=== PATIENT | female | born 1975 | race Caucasian/White ===

== ENCOUNTER 2017-07-14 18:02 | Emergency (ER) | payer BC ==
[2017-07-14] MEDS ORDERED: MAGNE/ALUM HYDROXD 30 ML UCUP ONE (19:06)
[2017-07-14] MEDS ORDERED: LIDOCAINE VISCOUS 2% SOLN 15 ML UDC ONE (19:06)
[2017-07-14] MEDS ORDERED: ONDANSETRON 4 MG/2 ML VIAL ONE (19:06)
[2017-07-14] MEDS ORDERED: FAMOTIDINE 20 MG/2 ML VIAL IV ONE (19:07)
[2017-07-14 19:42] LABS: Urine Blood TRACE (NEG); Urine Glucose NEGATIVE (NEG); Urine Protein NEGATIVE (NEG); Urine Specific Gravity 1.015 (1.005-1.030)
[2017-07-14 19:47] LABS: Absolute Lymphocytes (CBC) 3.4 K/uL (0.7-4.9); Absolute Monocytes 0.7 K/uL (0.1-1.3); Absolute Neutrophil 9.8 K/uL (1.8-8.0); Basophils % 1.1 % (0-1.3); Eosinophils % 3.4 % (0-4.4); Lymphocytes % 23.3 % (15.3-44.8); MCH 31.6 pg (27.0-35.0); MCV 94.6 fL (80-100); MPV 9.6 fL (7.6-11.3); Monocytes % 4.7 % (3.3-12.3); RBC Red Blood Cell Count 4.65 M/uL (3.86-4.86)
[2017-07-14 19:56] LABS: Bicarbonate 27 mEq/L (21-31); Glucose Level 93 mg/dL (65-120); Lipase 20 U/L (22-51); Potassium 4.3 mEq/L (3.6-5.0); Sodium Level 136 mEq/L (135-145)
[2017-07-14 20:02] LABS: ALT/SGPT 20 IU/L (10-60); AST/SGOT 17 IU/L (10-42); Albumin 4.1 g/dL (3.2-5.5); Alkaline Phosphatase 63 IU/L (42-121); Amylase Level 53 U/L (28-100); BUN Blood Urea Nitrogen 14 mg/dL (6-20); Bilirubin Direct < 0.1 mg/dL (0-0.2); Bilirubin Total 0.3 mg/dL (0.3-1.2); Protein, Total 7.7 g/dL (6.0-8.3)
[2017-07-14 20:47] LABS: Urine Bacteria <20 /HPF (<20); Urine Culture Reflex Order NOT NEEDED; Urine RBC <5 /HPF (NONE SEEN)
--- NOTE | 2017-07-14 21:43 | RAD REPORT ---
EXAM DESCRIPTION: CT - Abdomen Pelvis W Contrast - 07/14/2017 9:27 pm CLINICAL HISTORY: Abdominal pain. Left upper quadrant pain x3 days COMPARISON: None. TECHNIQUE: Computed axial tomography of the abdomen and pelvis was obtained. 100 cc Isovue-300 is ad ministered intravenously. Oral contrast was given. All CT scans are performed using dose optimization technique as appropriate and may include automated exposure control or mA/KV adjustment according to patient size. FINDINGS: The liver, spleen, pancreas, adrenals and kidneys appear unremarkable. The appendix is normal caliber. There is no evidence of diverticulitis The gallbladder is mildly distended Several prominent right ovarian follicles are seen. A 2 centimeter right ovarian cyst is present with out significant free-fluid IMPRESSION: Mildly distended gallbladder. Ultrasound may be helpful for further evaluation
--- NOTE | 2017-07-14 21:44 | RAD REPORT ---
EXAM DESCRIPTION: Rohan Single View07/14/2017 7:35 pm CLINICAL HISTORY: Abdominal pain COMPARISON: none FINDINGS: The lungs appear clear of acute infiltrate. The heart is normal size IMPRESSION: No acute abnormalities displayed
--- NOTE | 2017-07-14 22:32 | RAD REPORT ---
EXAM DESCRIPTION: US - Abdomen Exam Limited - 07/14/2017 10:20 pm CLINICAL HISTORY: Abdominal pain. COMPARISON: Cat scan July 14, 2017 FINDINGS: Multiple gallstones are present. The gallbladder wall is not thickened. The biliary tree is normal caliber. IMPRESSION: Cholelithiasis without evidence cholecystitis
[2017-07-14] MEDS ORDERED: CIPROFLOXACIN HCL 500 MG TAB ONE (22:48)
--- NOTE | 2017-07-14 22:50 | ER ---
Nurse's Notes [facility] Name: Di Ghotra Age: 42 yrs Sex: Female : 1975 Arrival Date: 07/14/2017 Time: 18:05 Bed 8 Private MD: Diagnosis: Cholelithiasis Presentation: 07/14 18:14 Presenting complaint: Patient states: Reports burning pain in epigastrium and diaphragm aj area that radiates to LUQ for 3 days. Transition of care: patient was not received from another setting of care. Onset of symptoms was July 11, 2017. Initial Sepsis Screen: Does the patient meet any 2 criteria? No. Patient's initial sepsis screen is negative. Does the patient have a suspected source of infection? No. Patient's initial sepsis screen is negative. Care prior to arrival: None. 18:14 Method Of Arrival: Ambulatory 18:14 Acuity: CHARBEL 3 aj Triage Assessment: 18:16 General: Appears in no apparent distress. uncomfortable, Behavior is calm, cooperative, aj appropriate for age. Pain: Complains of pain in epigastric area and left upper quadrant Pain currently is 8 out of 10 on a pain scale. Neuro: Level of Consciousness is awake, alert, obeys commands, Oriented to person, place, time, situation, Appropriate for age. Respiratory: Airway is patent Respiratory effort is even, unlabored, Respiratory pattern is regular, symmetrical. GI: Reports upper abdominal pain, epigastric pain. Derm: Skin is intact, is healthy with good turgor, Skin is pink, warm \T\ dry. normal. 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 - Social history:: Smoking status: Patient uses tobacco products, smokes one pack cigarettes per day. Screenin:20 Abuse screen: Denies threats or abuse. Denies injuries from another. Nutritional sg screening: No deficits noted. Tuberculosis screening: No symptoms or risk factors identified. Never had TB. Fall Risk None identified. Assessment: 18:20 Reassessment: Patient appears in no apparent distress at this time. Patient and/or sg family updated on plan of care and expected duration. Pain level reassessed. Patient is alert, oriented x 3, equal unlabored respirations, skin warm/dry/pink. General: Appears in no apparent distress. comfortable, well groomed, well developed, well nourished, Behavior is calm, cooperative, appropriate for age, quiet. 20:07 Reassessment: Patient appears in no apparent distress at this time. Patient and/or ak1 family updated on plan of care and expected duration. Pain level reassessed. Patient is alert, oriented x 3, equal unlabored respirations, skin warm/dry/pink. pt informed of procedure for CT with oral contrast. family/friend at bedside. will continue to monitor. 20:07 GI: Bowel sounds present X 4 quads. Abd is soft X 4 quads. ak1 Vital Signs: 18:16 BP 127 / 91; Pulse 83; Resp 19; Temp 98.0; Pulse Ox 97% on R/A; Weight 99.79 kg; Height aj 5 ft. 6 in. (167.64 cm); Pain 8/10; 21:47 BP 118 / 83; Pulse 63; Resp 18; Pulse Ox 97% on R/A; Pain 6/10; ak1 18:16 Body Mass Index 35.51 (99.79 kg, 167.64 cm) ED Course: 18:05 Patient arrived in ED. as 18:15 Triage completed. aj 18:16 Arm band placed on left wrist. Patient placed in an exam room, on a stretcher. aj 18:35 Jalen Garnica PA is PHCP. cp 18:35 Jim Peace MD is Attending Physician. cp 19:15 Inserted saline lock: 20 gauge in right antecubital area, using aseptic technique. cc Blood collected. 19:19 Juliana Vera, RN is Primary Nurse. ak1 19:20 Initial lab(s) drawn, by me, sent to lab. cc 19:27 Patient has correct armband on for positive identification. Placed in gown. Bed in low ak1 position. Call light in reach. Side rails up X 1. Adult w/ patient. personnel monitor on. Pulse ox on. NIBP on. CT notified pt finished oral contrast. 19:32 X-ray completed. Portable x-ray completed in exam room. Patient tolerated procedure bb2 well. 19:34 XRAY Chest (1 view) In Process Unspecified. EDMS 19:40 EKG done, by ED staff, reviewed by Jalen UNDERWOOD. cc 19:43 Urine --Ancillary (enter results) Sent. cc 19:43 Urine Dipstick--Ancillary (enter results) Sent. cc 21:27 CT Abd/Pelvis - W/Contrast In Process Unspecified. EDMS 22:20 US Abdomen Limited In Process Unspecified. EDMS 22:23 Patient moved back from ultrasound. valentino 22:49 Brenden Douglas MD is Referral Physician. cp 23:04 No provider procedures requiring assistance completed. IV discontinued, intact, ak1 bleeding controlled, No redness/swelling at site. Pressure dressing applied. Administered Medications: 19:19 Drug: Pepcid 20 mg Route: IVP; Site: right antecubital; ak1 22:19 Follow up: Response: No adverse reaction ak1 19:19 Drug: GI Cocktail without - (Maalox Suspension 30 ml, Lidocaine Liquid 2 % 15 ak1 ml) Route: PO; 22:19 Follow up: Response: No adverse reaction ak1 19:20 Drug: Zofran 4 mg Route: IVP; Site: right antecubital; ak1 22:19 Follow up: Response: No adverse reaction ak1 22:55 Drug: Ciprofloxacin 500 mg Route: PO; ak1 22:56 Follow up: Response: No adverse reaction ak1 Outcome: 22:50 Discharge ordered by MD. cp 23:04 Discharged to home ambulatory, with family. ak1 23:04 Condition: good 23:04 Discharge instructions given to patient, Instructed on discharge instructions, follow up and referral plans. no drinking with medication, no driving heavy equipment, medication usage, safe sex practices, Demonstrated understanding of instructions, follow-up care, medications, Prescriptions given X 4. 23:06 Patient left the ED. ak1 Signatures: Dispatcher [employer] EDMS Asa Berry RN RN sg Myers, Amanda, RN RN aj Martinez, Amelia as Christian, Chelsea cc Krenek, Amber RN RN ak1 Jalen Garnica PA PA cp Dupre, Jacques jd Bock, Brittany bb2
--- NOTE | 2017-07-14 22:50 | EDPHYS ---
Physician Documentation [facility] Name: Di Ghotra Age: 42 yrs Sex: Female : 1975 Arrival Date: 07/14/2017 Time: 18:05 Bed 8 Private MD: ED Physician Jim Peace HPI: 07/14 19:05 This 42 yrs old Female presents to ER via Ambulatory with complaints of cp Abdominal Pain, Chest Wall Pain. 19:05 The patient presents with abdominal pain in the epigastric area. cp 19:05 Onset: The symptoms/episode began/occurred 3 day(s) ago. cp 19:05 The symptoms radiate to chest. Associated signs and symptoms: Pertinent positives: cp nausea, Pertinent negatives: constipation, diarrhea, dysuria, fever, vomiting. 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 - Social history:: Smoking status: Patient uses tobacco products, smokes one pack cigarettes per day. ROS: 19:15 Constitutional: Negative for body aches, chills, fever, poor PO intake. cp 19:15 Eyes: Negative for injury, pain, redness, and discharge. cp Exam: 19:20 Constitutional: The patient appears in no acute distress, alert, awake, cp non-diaphoretic, non-toxic, well developed, well nourished, overweight 19:20 Head/Face: Normocephalic, atraumatic. cp 19:20 Eyes: Pupils equal round and reactive to light, extra-ocular motions intact. Lids and lashes normal. Conjunctiva and sclera are non-icteric and not injected. Cornea within normal limits. Periorbital areas with no swelling, redness, or edema. ENT: Nares patent. No nasal discharge, no septal abnormalities noted. Tympanic membranes are normal and external auditory canals are clear. Oropharynx with no redness, swelling, or masses, exudates, or evidence of obstruction, uvula midline. Mucous membranes moist. Neck: Trachea midline, no thyromegaly or masses palpated, and no cervical lymphadenopathy. Supple, full range of motion without nuchal rigidity, or vertebral point tenderness. No Meningismus. Chest/axilla: Normal chest wall appearance and motion. Nontender with no deformity. No lesions are appreciated. Cardiovascular: Regular rate and rhythm with a normal S1 and S2. No gallops, murmurs, or rubs. Normal PMI, no JVD. No pulse deficits. Respiratory: Lungs have equal breath sounds bilaterally, clear to auscultation and percussion. No rales, rhonchi or wheezes noted. No increased work of breathing, no retractions or nasal flaring. 19:20 Abdomen/GI: Inspection: abdomen appears normal, Bowel sounds: active, all quadrants, Palpation: soft, in all quadrants, moderate abdominal tenderness, in the epigastric area, rebound tenderness, is not appreciated, voluntary guarding, is elicited in the epigastric area, involuntary guarding, is not appreciated. 19:20 Back: CVA tenderness, is absent. 19:20 Skin: cellulitis, is not appreciated, no rash present. 19:20 Neuro: Orientation: to person, place \T\ time. Mentation: lucid, able to follow commands, Motor: moves all fours, strength is normal, Sensation: no obvious gross deficits. 19:40 ECG was reviewed by the Attending Physician. Vital Signs: 18:16 BP 127 / 91; Pulse 83; Resp 19; Temp 98.0; Pulse Ox 97% on R/A; Weight 99.79 kg; Height aj 5 ft. 6 in. (167.64 cm); Pain 8/10; 21:47 BP 118 / 83; Pulse 63; Resp 18; Pulse Ox 97% on R/A; Pain 6/10; ak1 18:16 Body Mass Index 35.51 (99.79 kg, 167.64 cm) aj MDM: 18:35 Patient medically screened. cp 20:00 Differential diagnosis: cholecystitis, Cholelithiasis, gastritis, gastroesophageal cp reflux disease, pancreatitis, Perf. Duodenal Ulcer, Perf. Gastric Ulcer, Peritonitis, Pyelonephritis, Ureterolithiasis, urinary tract infection. 22:50 Data reviewed: vital signs, nurses notes, lab test result(s), EKG, radiologic studies, cp CT scan, plain films, ultrasound. 22:50 Test interpretation: by ED physician or midlevel provider: ECG, plain radiologic cp studies. Counseling: I had a detailed discussion with the patient and/or guardian regarding: the historical points, exam findings, and any diagnostic results supporting the discharge/admit diagnosis, lab results, radiology results, the need for outpatient follow up, a general surgeon, to return to the emergency department if symptoms worsen or persist or if there are any questions or concerns that arise at home. Response to treatment: the patient's symptoms have markedly improved after treatment, and as a result, I will discharge patient. 07/14 19:00 Order name: Amylase, Serum; Complete Time: 20:20 07/14 19:00 Order name: Basic Metabolic Panel; Complete Time: 20:20 07/14 20:20 Interpretation: Normal except: GFR 86. 07/14 19:00 Order name: CBC with Diff; Complete Time: 20:20 07/14 20:20 Interpretation: Normal except: WBC 14.5; NEUT A 9.8. 07/14 19:00 Order name: Creatinine for Radiology; Complete Time: 20:20 07/14 19:00 Order name: Hepatic Function; Complete Time: 20:20 07/14 20:21 Interpretation: Normal except: GLOB 3.6. 07/14 19:00 Order name: Lipase; Complete Time: 20:20 07/14 20:21 Interpretation: LIP 20; Reviewed. 07/14 19:00 Order name: Urine Microscopic Only; Complete Time: 21:01 cp 07/14 21:01 Interpretation: Normal except: SQEPI 5-10. 07/14 19:00 Order name: Troponin I; Complete Time: 20:20 07/14 19:00 Order name: Magnesium; Complete Time: 20:20 07/14 19:00 Order name: XRAY Chest (1 view); Complete Time: 21:48 07/14 19:34 Order name: Urine Dipstick--Ancillary (enter results) em1 07/14 19:34 Order name: Urine --Ancillary (enter results) em1 07/14 19:35 Order name: Urine Dipstick-Ancillary; Complete Time: 20:20 [facility] 07/14 19:35 Order name: Urine --Ancillary; Complete Time: 20:20 [facility] 07/14 19:00 Order name: Urine Test (obtain specimen); Complete Time: 19:30 07/14 19:00 Order name: IV Saline Lock; Complete Time: 19:20 cp 07/14 19:00 Order name: Labs collected and sent; Complete Time: 19:20 cp 07/14 19:00 Order name: Urine Dipstick-Ancillary (obtain specimen); Complete Time: 19:20 cp 07/14 19:00 Order name: EKG; Complete Time: 19:00 cp 07/14 19:00 Order name: EKG - Nurse/Tech; Complete Time: 19:44 cp 07/14 19:00 Order name: CT Abd/Pelvis - W/Contrast; Complete Time: 21:48 cp 07/14 21:49 Order name: US Abdomen Limited; Complete Time: 22:44 cp 07/14 22:45 Order name: PO challenge; Complete Time: 22:51 cp EC:40 Rate is 51 beats/min. Rhythm is regular. W[place] interval is normal. QRS interval is normal. cp QT interval is normal. No ST changes noted. Interpreted by me. Reviewed by me. Administered Medications: 19:19 Drug: Pepcid 20 mg Route: IVP; Site: right antecubital; ak1 22:19 Follow up: Response: No adverse reaction ak1 19:19 Drug: GI Cocktail without - (Maalox Suspension 30 ml, Lidocaine Liquid 2 % 15 ak1 ml) Route: PO; 22:19 Follow up: Response: No adverse reaction ak1 19:20 Drug: Zofran 4 mg Route: IVP; Site: right antecubital; ak1 22:19 Follow up: Response: No adverse reaction ak1 22:55 Drug: Ciprofloxacin 500 mg Route: PO; ak1 22:56 Follow up: Response: No adverse reaction ak1 Disposition: 07/14/17 22:50 Discharged to Home. Impression: Cholelithiasis. - Condition is Stable. - Discharge Instructions: Biliary Colic, Cholelithiasis. - Prescriptions for Bentyl 20 mg Oral Tablet - take 2 tablet by ORAL route every 6 hours As needed; 40 tablet. Cipro 500 mg Oral Tablet - take 1 tablet by ORAL route every 12 hours for 7 days; 14 tablet. Tramadol 50 mg Oral Tablet - take 1 tablet by ORAL route every 8 hours as needed; 12 tablet. promethazine 25 mg Oral Tablet - take 1 tablet by ORAL route every 6 hours As needed; 20 tablet. - Work release form, Medication Reconciliation Form, Thank You Letter, Antibiotic Education, Prescription Opioid Use form. - Follow up: Brenden Douglas MD; When: call office in morning to schedule appointment; Reason: cholelithiasis. - Problem is new. - Symptoms have improved. Addendum: 07/17/2017 18:59 Co-signature as Attending Physician, Jim Peace MD. g s Signatures: Dispatcher [employer] EDTari Lin RN RN aj Krenek, Amber, RN RN ak1 Jalen Garnica PA PA Jim Pruett MD MD gs Corrections: (The following items were deleted from the chart) 07/14 20:21 20:20 Normal except: WBC 14.5. cp cp
--- NOTE | 2017-07-15 16:28 | EKG ---
Test Date: 2017-07-14 Test Time: 19:34:10 Growth Media Mixer Mushroom: EVE MEASUREMENT RESULTS: Intervals: Rate: 51 HI: 170 QRSD: 84 QT: 396 QTc: 364 [place]: P: 16 HI: 170 QRS: 68 T: 58 INTERPRETIVE STATEMENTS: Sinus bradycardia Otherwise normal ECG No previous ECG available for comparison Electronically Signed On 07-15-17 16:24:00 CDT by Beni Jett
== END 2017-07-14 23:06 | disposition home or self-care (01) ==
LOC: ER 18:02
DX: K80.20 Calculus of gallbladder without cholecystitis without obstruction (principal); F17.210 Nicotine dependence, cigarettes, uncomplicated
CPT/HCPCS: 36415; 71045; 74177; 76705; 80048; 80076; 81003; 81015; 81025; 82150; 83690; 83735; 84484; 85025; 93005; 96374; 96375; 99285; J2405; Q9967

== ENCOUNTER 2017-07-20 11:58 | Day surgery (SDC) | payer BC ==
[2017-07-19 18:00] LABS: Absolute Lymphocytes (CBC) 3.2 K/uL (0.7-4.9); Absolute Monocytes 0.6 K/uL (0.1-1.3); Absolute Neutrophil 5.8 K/uL (1.8-8.0); Basophils % 1.3 % (0-1.3); Eosinophils % 6.2 % (0-4.4); Lymphocytes % 31.1 % (15.3-44.8); MCH 32.6 pg (27.0-35.0); MCV 94.4 fL (80-100); MPV 9.7 fL (7.6-11.3); Monocytes % 6.2 % (3.3-12.3); RBC Red Blood Cell Count 4.67 M/uL (3.86-4.86)
[2017-07-19 18:05] LABS: Bilirubin Direct 0.1 mg/dL (0-0.2); Bilirubin Total 0.5 mg/dL (0.3-1.2); Potassium 4.3 mEq/L (3.6-5.0); Protein, Total 7.2 g/dL (6.0-8.3)
[2017-07-20 12:10] LABS: Specific Gravity 1.025 (1.005-1.030)
[2017-07-20] MEDS ORDERED: Ringers Lactate 1,000 ML IV ONE (12:22)
[2017-07-20] MEDS ORDERED: CEFOXITIN/SWI 1gm 1 GM/10 ML SYR ONE (12:29)
[2017-07-20] MEDS ORDERED: PROPOFOL 200 MG/20 ML VIAL IV ONE (13:23)
[2017-07-20] MEDS ORDERED: MIDAZOLAM HCL 2 MG/2 ML INJ ONE (13:25)
[2017-07-20] MEDS ORDERED: LIDOCAINE 2% MPF 5 ML VIAL ONE (13:26)
[2017-07-20] MEDS ORDERED: ONDANSETRON 4 MG/2 ML VIAL ONE ×3 (13:26→17:44)
[2017-07-20] MEDS ORDERED: ROCURONIUM 50 MG/5 ML VIAL IV ONE (13:27)
[2017-07-20] MEDS ORDERED: FENTANYL CITR 100 MCG/2 ML ONE (13:27)
--- NOTE | 2017-07-20 14:37 | P.BOP ---
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
[2017-07-20] MEDS ORDERED: GLYCOPYRROLATE 0.2 MG/ML SYR ONE (14:54)
[2017-07-20] MEDS ORDERED: NEOSTIGMINE 1 MG/ML -5 ML SYRINGE ONE (14:54)
[2017-07-20] MEDS: PROMETHAZINE 25 MG/ML VIAL ONE ×2 (15:11→15:24)
[2017-07-20] MEDS ORDERED: METOCLOPRAMIDE 10 MG/2mL INJ ONE (15:20)
[2017-07-20] MEDS: MEPERIDINE HCL 50 MG/ML AMP ONE ×3 (15:31→15:41)
--- NOTE | 2017-07-21 02:07 | OP ---
Date of Procedure: 07/20/2017 Surgeon: Tomi Rivera MD Mc Kay Machine Operator: PASCUAL Martino. Preoperative Diagnoses: 1.Acute cholecystitis. 2.Symptomatic cholelithiasis. Postoperative Diagnoses: 1.Acute cholecystitis. 2.Symptomatic cholelithiasis. Procedure Performed: Laparoscopic cholecystectomy. Estimated Blood Loss: Less than 10 cc. Specimen: Gallbladder. Findings: Acute cholecystitis and symptomatic cholelithiasis. Anesthesia: General plus local. Indications: This is a case of a 42-year-old patient with above diagnoses. Fully explained the bene fits, alternatives, and risks of laparoscopic, possible open cholecystectomy which include, but not l imited to infection, bleeding, damage to adjacent structures, anesthesia complication, ND, even , choledocholithiasis, and pancreatitis. The patient understood this might not relieve any symptoms. She might need more than one surgical intervention. She understood and signed a consent. Description Of Procedure: The patient was brought to the operating room and placed in supine positio n. Anesthesia was done without complication. Abdominal area was prepped and draped in the usual arnav rile fashion. Marcaine 0.5% was injected for local anesthetic, followed by sharp incision of the ski n in the infraumbilical region. Incision was carried down to fascia which was opened under direct vi marvel. Peritoneum was encountered and opened under direct vision. Vicryl #1 placed inside the fascia . Dk trocar was carefully introduced. Pneumoperitoneum was obtained. I placed 3 more trocars, 5 mm each one of them, in the right upper quadrant. This allowed me to put an Endo needle in the gal lbladder since it was so distended. This was done under direct visualization. The needle was remove d. Grasper was placed in the fundus of the gallbladder and another grasper in the infundibulum, and the gallbladder was retracted in the inferolateral fashion exposing the triangle of Calot and obtaini ng critical view of safety. At that moment, I proceeded to identify the cystic duct and cystic arter y, isolated free circumferentially, and a connection between those and the gallbladder was clearly id entified. I proceeded to ligate those by using at least 3 clips proximal, 1 clip distal, and ligatio n in middle. Same was done with the cystic artery. A small tiny little branch of the cystic artery was also ligated. The hepatic artery and common bile duct were protected at all times. The gallblad terri was removed from liver using Bovie cauterizer. This was partially embedded on the liver. After that, the gallbladder was removed from the liver using Bovie cauterizer and removed from abdominal ca vity using EndoCatch through the umbilical incision. The area was inspected once again. No bleeding . Clips were intact. We also have to mention that around the gallbladder, the patient had a lot of omental adhesions to the liver that were carefully removed, and also we checked out for hemostasis at the end, and there was no bleeding. We removed the trocars under direct vision, deflated pneumoperi toneum, and closed the fascia with #1 Vicryl. We irrigated subcutaneous tissue and closed that with 3-0 chromic and skin in a subcuticular fashion. The patient had previous incision in that skin. So, we closed that again. Steri-Strips were placed over the area. The patient tolerated the procedure well. The patient was sent to recovery in stable condition. MIGUE/BARBARA Voice ID: [id number] Report ID: [id number]
--- NOTE | 2017-07-21 02:16 | DS ---
Date of Discharge: 07/20/2017 Diagnoses: 1.Acute cholecystitis. 2.Symptomatic cholelithiasis. Procedure Performed: Laparoscopic cholecystectomy. Disposition: Home. Activity: As tolerated. No heavy lifting. Followup: Follow up in my office in 1 week. Call for appointment at [phone]. Keep area dry for 48 hours and then may shower. Keep the Steri-Strips intact. Medications: Include Tylenol No. 3 q.4 hours p.r.n. pain. The patient already has Cipro at home. MIGUE/BARBARA Voice ID: [id number] Report ID: [id number]
== END 2017-07-20 18:05 | disposition home or self-care (01) ==
LOC: OR 11:58
PROVIDERS: ATTEND Surgery
PROC: 0FT44ZZ Resection of Gallbladder, Percutaneous Endoscopic Approach (ICD-10-PCS; principal; 2017-07-20 13:45)
DX: K80.12 Calculus of gallbladder with acute and chronic cholecystitis without obstruction (principal); F17.200 Nicotine dependence, unspecified, uncomplicated; M19.90 Unspecified osteoarthritis, unspecified site; Z01.812 Encounter for preprocedural laboratory examination
CPT/HCPCS: 36415; 80048; 80076; 81025; 82150; 83690; 85025; 88305; J2175; J2250; J2405; J2550; J2710; J2765; J3010

== ENCOUNTER 2017-10-07 06:34 | Day surgery (SDC) | payer BC ==
[2017-10-06 15:33] LABS: Absolute Lymphocytes (CBC) 1.8 K/uL (0.7-4.9); Absolute Monocytes 1.1 K/uL (0.1-1.3); Absolute Neutrophil 12.1 K/uL (1.8-8.0); Basophils % 0.6 % (0-1.3); Eosinophils % 0.5 % (0-4.4); Hematocrit 39.7 % (36.0-45.0); MCV 94.6 fL (80-100); MPV 9.6 fL (7.6-11.3); Monocytes % 7.3 % (3.3-12.3)
[2017-10-06 15:44] LABS: Potassium 3.8 mmol/L (3.5-5.1)
--- NOTE | 2017-10-06 16:32 | RAD REPORT ---
EXAM DESCRIPTION: RAD - Chest Pa And Lat (2 Views) - 10/06/2017 4:27 pm CLINICAL HISTORY: Cough and congestion Chest pain. COMPARISON: Chest Single View dated 07/14/2017; Abdomen Pelvis W Contrast dated 07/14/2017 FINDINGS: The lungs are clear. The heart is normal in size. No displaced fractures. IMPRESSION: No acute or concerning finding suspected.
[2017-10-07] MEDS ORDERED: Ringers Lactate 1,000 ML IV ONE (06:46)
[2017-10-07] MEDS ORDERED: CEFOXITIN/SWI 1gm 1 GM/10 ML SYR ONE (06:47)
[2017-10-07] MEDS ORDERED: BUPIVACAINE 0.5% PF 10 ML VIAL ONE (07:01)
[2017-10-07] MEDS ORDERED: LIDOCAINE 2% MPF 5 ML VIAL ONE (07:03)
[2017-10-07] MEDS ORDERED: PROPOFOL 200 MG/20 ML VIAL IV ONE (07:03)
[2017-10-07] MEDS ORDERED: FENTANYL CITR 100 MCG/2 ML ONE ×2 (07:03→07:26)
[2017-10-07] MEDS ORDERED: MIDAZOLAM HCL 2 MG/2 ML INJ ONE (07:08)
[2017-10-07] MEDS ORDERED: ONDANSETRON HCL 40 MG/20 ML VIAL ONE (07:08)
[2017-10-07] MEDS: MEPERIDINE HCL 50 MG/ML AMP ONE ×2 (07:53→08:00)
--- NOTE | 2017-10-07 08:07 | EKG ---
Test Date: 2017-10-06 Test Time: 15:05:07 Sales Systems Engineer: MONTRELL MEASUREMENT RESULTS: Intervals: Rate: 64 MS: 162 QRSD: 72 QT: 362 QTc: 373 [place]: P: 90 MS: 162 QRS: 84 T: 50 INTERPRETIVE STATEMENTS: Sinus rhythm with marked sinus arrhythmia Otherwise normal ECG Compared to ECG 07/14/2017 19:34:10 Sinus bradycardia no longer present Electronically Signed On 10-07-17 08:03:28 CDT by Beni Jett
[2017-10-07] MEDS ORDERED: HYDROCODONE/APAP 7.5/325 MG TAB ONE (09:12)
--- NOTE | 2017-10-07 12:47 | OP ---
Date of Procedure: 10/07/2017 Surgeon: Brenden Douglas MD Preoperative Diagnosis: Left perirectal abscess. Postoperative Diagnosis: Left perirectal abscess. Procedure: Exam under anesthesia, rigid proctoscopy, incision and drainage and debridement of left p erirectal abscess Estimated Blood Loss: Minimal. Specimen: Pus. Findings: As above. Anesthesia: General. Complications: None. Disposition: The patient tolerated the procedure in stable condition and taken to Recovery in good g eneral condition. Operative Note: The patient brought to the OR and placed in supine position. General anesthesia was begun. The patient was prepped and draped in usual sterile fashion in the lithotomy position. Exam under anesthesia revealed some pus coming from the anus. Rigid proctoscopy performed, however clear opening could not be seen because of the stool present in there, but I anticipate this probably is a secondary to a fistula. Subsequently on the left buttock region where the fluctuant part of the abs cess was, Marcaine 0.5% was infiltrated, then approximately a 6 cm incision was made. Subcutaneous t issue divided. Deep to the subcutaneous tissue pus under pressure evacuated. Loculation broken up. Necrotic tissue debrided. Cultures done. Wound irrigated. Bleeding controlled with cautery and we t-to-dry normal saline dressing change applied. The patient tolerated the procedure in stable condit ion and taken to Recovery in good general condition. Discharge Note: The patient will go to Day-Surgery and home when stable. Disposition: Home. Condition: Stable. Discharge Instructions: Resume home meds and diet. Activity as tolerated. No heavy lifting. Wet-t o-dry normal saline dressing changes daily, home health for that purpose. Cipro 500 mg p.o. q.12 leon rs and Bactrim DS 1 tablet p.o. q.12, Tylenol No.3 one tablet p.o. q.4 p.r.n. pain. Follow up in my office in 2 weeks. SASCHA/BARBARA Voice ID: [id number] Report ID: [id number]
== END 2017-10-07 09:35 | disposition home or self-care (01) ==
LOC: OR 06:34
PROVIDERS: ATTEND Surgery
PROC: 0DJD8ZZ Inspection of Lower Intestinal Tract, Via Natural or Artificial Opening Endoscopic (ICD-10-PCS; 2017-10-07)
PROC: 0D9P0ZX Drainage of Rectum, Open Approach, Diagnostic (ICD-10-PCS; principal; 2017-10-07 07:30)
DX: K61.2 Anorectal abscess (principal); F17.210 Nicotine dependence, cigarettes, uncomplicated
CPT/HCPCS: 36415; 71046; 80048; 84703; 85025; 87070; 87075; 87205; 93005; J2175; J2250; J2405; J3010

== ENCOUNTER → 2023-06-14 | Emergency (ER) | payer BC ==
--- OUTSIDE RECORDS SUMMARY | 2023-06-14 11:49 | XMS REPORT | Continuity of Care Document ---
Author Name Unknown Address [address] [facility] [address] [id number] [facility] thconnect Address [address] [facility] [address] [place] [address] Care Team Providers Care Rn Renal Name Role Phone Lab, Adc Fam Luisitob I Attending Clinician Unavailab Rekha Ha Attending Clinician REKHA PINK Attending Clinician Unavailab le Payers Payer Name Policy Type Policy Number Effective Date Expirati on Date Source Allergies, Adverse Reactions, Alerts Allergy Name Allergy Type Status Severity Reaction(s) Onset Date Inactive Date Treating Clinician Comments Source NO KNOWN ALLERGIE S Drug Class Active [facility] Social History Social Habit Start Date Stop Date Quantity Comments Source Sex Assigned At [facility] Exposure to SARS-CoV-2 (event) Yes [facility] Smoking Status Start Date Stop Date Source Unknown if ever smoked [facility] Encounters Start Date/Time End Date/Time Encounter Type Admission Type Attending Clinicians Care Facility Care Department Encounter ID Source 2020-07-01 15:30:00 2020-07-01 15:30:00 Outpatient R [facility] [id number] [facility] 2020-03-10 19:29:43 2020-03-10 19:49:43 Laboratory Only Lab, Adc Fam Luisitob I Rekha Pink [facility] Office [facility] One [id number] [facility] 2020-03-10 19:40:00 2020-03-10 19:40:00 Outpatient R REKHA PINK [facility] [id number] [facility]
[2023-06-14 13:05] LABS: Absolute Basophils 0.1 K/uL (0-0.5); Absolute Eosinophils 0.2 K/uL (0-0.5); Absolute Lymphocytes (CBC) 2.5 K/uL (0.7-4.9); Absolute Monocytes 0.3 K/uL (0.1-1.3); Absolute Neutrophil 6.4 K/uL (1.8-8.0); Basophils % 0.8 % (0-1.3); Eosinophils % 2.2 % (0-4.4); Hematocrit 43.6 % (36.0-45.0); Lymphocytes % 26.4 % (15.3-44.8); MCH 31.7 pg (27.0-35.0); MCHC 34.3 g/dL (32.0-36.0); MCV 92.4 fL (80-100); MPV 9.7 fL (7.6-11.3); Monocytes % 3.2 % (3.3-12.3); Neutrophils % 67.4 % (41.7-73.7); Nucleated Red Blood Cells % 0.1 % (0-0); Platelets 335 thou/uL (152-406); RBC Red Blood Cell Count 4.72 M/uL (3.86-4.86); Red Cell Distribution Width 12.7 % (12.1-15.2)
[2023-06-14 13:18] LABS: ALT/SGPT 71 U/L (13-56); AST/SGOT 67 U/L (15-37); Albumin 3.8 g/dL (3.4-5.0); Albumin/Globulin Ratio 0.8 (1.1-1.8); Alkaline Phosphatase 90 U/L (45-117); Anion Gap 8.8 mEq/L (5.0-15.0); BUN Blood Urea Nitrogen 11 mg/dL (7-18); Bicarbonate 24 mEq/L (21-32); Bilirubin Direct 0.2 mg/dL (0-0.2); Bilirubin Indirect, Calculated 0.3 mg/dL (0.2-0.8); Bilirubin Total 0.5 mg/dL (0.2-1.0); Globulin 4.8 g/dL (2.3-3.5); Glomerular Filtration Rate 88 ml/min (=/>90); Glucose Level 108 mg/dL (74-106); Magnesium 2.2 mg/dL (1.6-2.4); NT PRO-BNP 24 pg/mL (<125); Potassium 3.8 mEq/L (3.5-5.1); Protein, Total 8.6 g/dL (6.4-8.2); Sodium Level 136 mEq/L (136-145)
[2023-06-14 13:28] LABS: Troponin High Sensitivity < 3.0 pg/mL (<58.9)
--- NOTE | 2023-06-14 13:30 | RAD REPORT ---
EXAM DESCRIPTION: CT - Chest For Pe Angio - 06/14/2023 1:21 pm CLINICAL HISTORY: Chest pain. CHEST PAIN COMPARISON: No comparisons TECHNIQUE: CT angiogram of the pulmonary arteries was performed with MIP. All CT scans are performed using dose optimization technique as appropriate and may include automated exposure control or mA/KV adjustment according to patient size. FINDINGS: No evidence of pulmonary thromboembolism. No acute aortic finding demonstrated. The lungs are clear. No significant pericardial or pleural fluid. No concerning bony finding. IMPRESSION: No evidence of pulmonary thromboembolism. No acute lung findings.
--- NOTE | 2023-06-14 17:00 | EKG ---
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
--- NOTE | 2023-06-14 17:13 | EDPHYS ---
Physician Documentation [facility] Name: Di Ghotra Age: 48 yrs Sex: Female : 1975 Arrival Date: 06/14/2023 Time: 11:47 Bed 19 Private MD: ED Physician Chante Qiu HPI: 06/13 12:26 This 48 yrs old Female presents to ER via Wheelchair with complaints of Chest Pain, sp3 Shortness Of Breath. 12:26 48-year-old female with no past medical history presents with chief complaint sp3 circumferential chest pain off and on since morning. Patient initially had symptoms after she got to work after which she started to come to the ED during which symptoms resolved and she went back to work. Later while she was at work, her symptoms restarted and now on her lunch break she presents to the ED for further evaluation. Before I could see her, patient states that her symptoms had somewhat subsided. Pain is described as circumferential around her entire chest around her back. No lower pain including abdomen and lower back. She also denies fever, headache, URI symptoms, facial pain, neck pain, extremity pain or numbness or weakness, abdominal pain, nausea, vomiting, diarrhea, low back pain, syncope, near syncope, any lower extremity neurological symptoms, loss of bowel bladder control, speech changes, memory loss, dysarthria, known sick contacts, travel history, prolonged immobilization, or any other signs or symptoms on ROS at this time.. Historical: - Allergies: 11:56 Codeine; ld1 - PMHx: 11:56 None; ld1 - PSHx: 11:56 tubes tied; Cholecystectomy; ld1 - Immunization history:: Adult Immunizations up to date. - Social history:: Smoking status: Patient denies any tobacco usage or history of. ROS: 12:27 Constitutional: Negative for fever, chills, and weight loss, Eyes: Negative for injury, sp3 pain, redness, and discharge, ENT: Negative for injury, pain, and discharge, Neck: Negative for injury, pain, and swelling, Respiratory: Negative for shortness of breath, cough, wheezing, and pleuritic chest pain, Abdomen/GI: Negative for abdominal pain, nausea, vomiting, diarrhea, and constipation, Back: Negative for injury and pain, MS/Extremity: Negative for injury and deformity, Skin: Negative for injury, rash, and discoloration, Neuro: Negative for headache, weakness, numbness, tingling, and seizure, Psych: Negative for depression, anxiety, suicide ideation, homicidal ideation, and hallucinations, Allergy/Immunology: Negative for hives, rash, and allergies, Endocrine: Negative for neck swelling, polydipsia, polyuria, polyphagia, and marked weight changes, 12:27 All other systems are negative, Exam: 12:27 Constitutional: This is a well developed, well nourished patient who is awake, alert, sp3 and in no acute distress. Head/Face: Normocephalic, atraumatic. Eyes: Pupils equal round and reactive to light, extra-ocular motions intact. Lids and lashes normal. Conjunctiva and sclera are non-icteric and not injected. Cornea within normal limits. Periorbital areas with no swelling, redness, or edema. ENT: Nares patent. No nasal discharge, no septal abnormalities noted. External auditory canals are clear. Oropharynx with no redness, swelling, or masses, exudates, or evidence of obstruction, uvula midline. Mucous membranes moist. Neck: Trachea midline, no thyromegaly or masses palpated, and no cervical lymphadenopathy. Supple, full range of motion without nuchal rigidity, or vertebral point tenderness. No Meningismus. Chest/axilla: Normal chest wall appearance and motion. Nontender with no deformity. No lesions are appreciated. Cardiovascular: Regular rate and rhythm with a normal S1 and S2. No gallops, murmurs, or rubs. Normal PMI, no JVD. No pulse deficits. Respiratory: Lungs have equal breath sounds bilaterally, clear to auscultation and percussion. No rales, rhonchi or wheezes noted. No increased work of breathing, no retractions or nasal flaring. Abdomen/GI: Soft, non-tender, with normal bowel sounds. No distension or tympany. No guarding or rebound. No evidence of tenderness throughout. Back: No spinal tenderness. No costovertebral tenderness. Full range of motion. Skin: Warm, dry with normal turgor. Normal color with no rashes, no lesions, and no evidence of cellulitis. MS/ Extremity: Pulses equal, no cyanosis. Neurovascular intact. Full, normal range of motion. Neuro: Awake and alert, GCS 15, oriented to person, place, time, and situation. Cranial nerves II-XII grossly intact. Motor strength 5/5 in all extremities. Sensory grossly intact. Cerebellar exam normal. Normal gait. Psych: Awake, alert, with orientation to person, place and time. Behavior, mood, and affect are within normal limits. 12:39 ECG was reviewed by the Attending Physician. EKG demonstrates normal sinus rhythm at 60 sp3 bpm with normal intervals, normal QRS, normal axis, normal axis ST segments without evidence of acute ischemia. Vital Signs: 11:57 BP 123 / 81; Pulse 86; Resp 18; Temp 97.3; Pulse Ox 100% on R/A; Weight 113.4 kg; ld1 Height 5 ft. 6 in. ; Pain 2/10; 14:15 BP 111 / 70; Pulse 52; Resp 16; Pulse Ox 98% ; Pain 0/10; nj1 17:24 BP 115 / 78; Pulse 52; Resp 16; Pulse Ox 99% on R/A; nj1 11:57 Body Mass Index 40.35 (113.40 kg, 167.64 cm) ld1 11:57 Pain Scale: Adult ld1 14:15 Pain Scale: Adult nj1 MDM: 12:01 Patient medically screened. sp3 12:27 Data reviewed: vital signs, nurses notes, lab test result(s), EKG, radiologic studies. sp3 ED course: 48-year-old female with no past medical history with now off and on oscillating and resolving chest pain. Differential diagnosis includes musculoskeletal pain, acute coronary syndrome, pleurisy, costochondritis, esophageal spasm, gastritis/GERD, among others. I am not highly suspicious for pneumonia, bronchitis, pulmonary embolism, TAD, sepsis, shock or any other critical pathology at this time. Workup will include EKG, CT scan of the chest, laboratory values and general observation. Vital signs are normal. If workup is negative, we will safely discharge patient home after second troponin in 2 hours.. 13:55 ED course: Full workup is negative including CT scan of the chest. Second troponin will sp3 be drawn at 2-hour suresh and if negative we will safely discharge patient home.. 17:11 ED course: Repeat troponin negative and remainder of workup negative. We will safely sp3 discharge patient home at this time.. 06/13 12:05 Order name: Basic Metabolic Panel; Complete Time: 13:55 sp3 03/26 12:05 Order name: CBC with Diff; Complete Time: 13:55 sp3 06/13 12:05 Order name: LFT's; Complete Time: 13:55 sp3 06/13 12:05 Order name: Magnesium; Complete Time: 13:55 sp3 06/13 12:05 Order name: NT PRO-BNP; Complete Time: 13:55 sp3 06/13 12:05 Order name: Troponin HS; Complete Time: 13:55 sp3 06/13 16:40 Order name: Troponin High Sensitivity; Complete Time: 17:11 as6 06/13 12:05 Order name: CT Chest For PE Angio; Complete Time: 13:55 sp3 06/13 12:05 Order name: EKG; Complete Time: 12:06 sp3 06/13 12:05 Order name: Cardiac monitoring; Complete Time: 12:34 sp3 06/13 12:05 Order name: EKG - Nurse/Tech; Complete Time: 12:34 sp3 06/13 12:05 Order name: IV Saline Lock; Complete Time: 12:55 sp3 06/13 12:05 Order name: Labs collected and sent; Complete Time: 12:55 sp3 06/13 12:05 Order name: O2 Per Protocol; Complete Time: 12:34 sp3 06/13 12:05 Order name: O2 Sat Monitoring; Complete Time: 12:34 sp3 Administered Medications: No medications were administered Disposition Summary: 06/14/23 17:12 Discharge Ordered Notes: Location: Home sp3 Condition: Stable sp3 Diagnosis - Chest pain, unspecified sp3 Followup: sp3 - With: Private Physician - When: Upon discharge from the Emergency Department - Reason: Continuance of care Discharge Instructions: - Discharge Summary Sheet sp3 - Nonspecific Chest Pain, Adult sp3 Forms: - Medication Reconciliation Form sp3 - Thank You Letter sp3 - Antibiotic Education sp3 - Prescription Opioid Use sp3 - Patient Portal Instructions sp3 - Leadership Thank You Letter sp3 Signatures: Dispatcher [employer] EDMS Meena Hamilton RN RN ld1 Chante Qiu MD MD sp3 Corrections: (The following items were deleted from the chart) 13:55 12:29 Troponin High Sensitivity+C.LAB.BRZ ordered. EDNC EDNC 13:57 13:55 ED course: Full workup is negative including CT scan of the chest. We will safely sp3 discharge patient home at this time.. sp3
--- NOTE | 2023-06-14 17:13 | ER ---
Nurse's Notes [facility] Name: Di Ghotra Age: 48 yrs Sex: Female : 1975 Arrival Date: 06/14/2023 Time: 11:47 Bed 19 Private MD: Diagnosis: Chest pain, unspecified Presentation: 06/13 11:57 Chief complaint: Patient states: CP and SOB, 2 episodes this AM. Coronavirus screen: ld1 Client denies travel out of the [place] in the last 14 days. At this time, the client does not indicate any symptoms associated with coronavirus-19. Ebola Screen: Patient denies travel to an Ebola-affected area in the 21 days before illness onset. Initial Sepsis Screen: Does the patient meet any 2 criteria? No. Patient's initial sepsis screen is negative. Does the patient have a suspected source of infection? No. Patient's initial sepsis screen is negative. Risk Assessment: Do you want to hurt yourself or someone else? Patient reports no desire to harm self or others. Onset of symptoms was June 14, 2023. 11:57 Method Of Arrival: Wheelchair ld1 11:57 Acuity: CHARBEL 3 ld1 Triage Assessment: 11:59 General: Appears in no apparent distress. Behavior is calm, cooperative, appropriate ld1 for age. Pain: Complains of pain in chest Pain currently is 2 out of 10 on a pain scale. Quality of pain is described as pressure, Pain began 3 hours ago. Cardiovascular: Reports chest pain, shortness of breath. Respiratory: Reports shortness of breath. Historical: - Allergies: 11:56 Codeine; ld1 - PMHx: 11:56 None; ld1 - PSHx: 11:56 tubes tied; Cholecystectomy; ld1 - Immunization history:: Adult Immunizations up to date. - Social history:: Smoking status: Patient denies any tobacco usage or history of. Screenin:30 [facility] ED Fall Risk Assessment (Adult) History of falling in the last 3 months, nj1 including since admission No falls in past 3 months (0 pts) Confusion or Disorientation No (0 pts) Intoxicated or Sedated No (0 pts) Impaired Gait No (0 pts) Mobility Assist Device Used No (0 pt) Altered Elimination No (0 pt) Score/Fall Risk Level 0 - 2 = Low Risk Oriented to surroundings, Maintained a safe environment, Hourly rounding (assess needs \T\ fall precautionary measures) done. 12:30 Abuse screen: Denies threats or abuse. Denies injuries from another. Nutritional nj1 screening: No deficits noted. Tuberculosis screening: No symptoms or risk factors identified. Assessment: 12:30 General: Appears in no apparent distress. comfortable, Behavior is calm, cooperative, nj1 appropriate for age. Pain: Denies pain. Neuro: Level of Consciousness is awake, alert, obeys commands, Oriented to person, place, time, situation. Cardiovascular: Patient's skin is warm and dry. Respiratory: Airway is patent Respiratory effort is even, unlabored. 14:15 Reassessment: Patient appears in no apparent distress at this time. Patient and/or nj1 family updated on plan of care and expected duration. Pain level reassessed. Patient is alert, oriented x 3, equal unlabored respirations, skin warm/dry/pink. 15:35 Reassessment: Patient appears in no apparent distress at this time. Patient and/or nj1 family updated on plan of care and expected duration. Pain level reassessed. Patient is alert, oriented x 3, equal unlabored respirations, skin warm/dry/pink. 17:24 Reassessment: Patient appears in no apparent distress at this time. Patient is alert, nj1 oriented x 3, equal unlabored respirations, skin warm/dry/pink. Vital Signs: 11:57 BP 123 / 81; Pulse 86; Resp 18; Temp 97.3; Pulse Ox 100% on R/A; Weight 113.4 kg; ld1 Height 5 ft. 6 in. ; Pain 2/10; 14:15 BP 111 / 70; Pulse 52; Resp 16; Pulse Ox 98% ; Pain 0/10; nj1 17:24 BP 115 / 78; Pulse 52; Resp 16; Pulse Ox 99% on R/A; nj1 11:57 Body Mass Index 40.35 (113.40 kg, 167.64 cm) ld1 11:57 Pain Scale: Adult ld1 14:15 Pain Scale: Adult nj1 ED Course: 11:48 Patient arrived in ED. mg5 11:56 Arm band placed on Patient placed in an exam room, on a stretcher. ld1 11:58 Triage completed. ld1 12:00 Chante Qiu MD is Attending Physician. sp3 12:21 Marielena Parra, RN is Primary Nurse. nj1 12:30 Patient has correct armband on for positive identification. Bed in low position. Call nj1 light in reach. 12:30 Provided Education on: call light, fall precautions. nj1 12:30 EKG done, by ED staff, reviewed by Chante Qiu MD. nj1 12:45 Inserted saline lock: 20 gauge in right forearm, using aseptic technique. ,using [facility] aseptic technique. Ultrasound guided. Catheter tip well visualized within vasculature during placement. Blood collected. 12:46 Initial lab(s) drawn, by ED staff, sent to lab. hb 12:46 Patient maintains SpO2 saturation greater than 95% on room air. hb 13:[address] via wheelchair. hb 13:23 CT Chest For PE Angio In Process Unspecified. EDMS 16:38 Client placed on continuous cardiac and pulse oximetry monitoring. NIBP monitoring hb applied. case monitor on. Pulse ox on. NIBP on. 17:25 No provider procedures requiring assistance completed. IV discontinued, intact, nj1 bleeding controlled, Pressure dressing applied. Administered Medications: No medications were administered Medication: 17:25 VIS not applicable for this client. nj1 Outcome: 17:12 Discharge ordered by . sp3 17:25 Discharged to home ambulatory, with family, nj 17:25 Condition: stable 17:25 Discharge instructions given to patient, Instructed on discharge instructions, follow up and referral plans. Demonstrated understanding of instructions, follow-up care, 17:26 Patient left the ED. nj1 Signatures: Dispatcher [employer] EDKS Diana Posadas RN RN Meena Hamilton RN RN ld1 Chante Qiu MD MD sp3 Marielena Parra, NAVYA RN young Edie Alanis 5 Corrections: (The following items were deleted from the chart) 12:58 12:40 General: Appears in no apparent distress. comfortable, Behavior is calm, nj cooperative, appropriate for age, nj 12:58 12:40 Pain: Denies pain. nj nj 12:58 12:40 Neuro: Level of Consciousness is awake, alert, obeys commands, Oriented to nj person, place, time, situation, nj 12:58 12:40 Cardiovascular: Patient's skin is warm and dry. nj nj 12:58 12:40 Respiratory: Airway is patent Respiratory effort is even, unlabored, nj1 nj1
[2023-06-14 17:55] VITALS: BP 115/78; TEMP 97.3; O2SAT 99
== END ==
LOC: ER 11:47
DX: R07.9 Chest pain, unspecified (principal); Z88.5 Allergy status to narcotic agent
CPT/HCPCS: 93005; 85025; 80048; 36415; 83735; 80076; 84484 ×2; 83880; 71275; Q9967